=== PATIENT | male | born 1975 | race Caucasian/White ===

== ENCOUNTER 2019-02-11 06:09 | Inpatient (IN) | payer OTHER ==
--- NOTE | 2019-02-10 07:25 | HP ---
HISTORY OF PRESENT ILLNESS: This is a 43-year-old man, who reports to the office for evaluation of low back and leg pain. The patient states that approximately 2 years ago, he was lifting something and the next morning, he could not get up and had to take some time off work. Recently, he states that his low back pain is mostly on the left side into his buttocks, where he feels like there is a hot poker stabbing him. Below his right knee, he has some numbness feeling to his foot. The patient states that he has gone to Physical Therapy for one visit and got some home exercises, which he has been doing regularly. He has gotten injections with a little bit of benefit. He has also been taking muscle relaxers, gabapentin, and pain relieving patches with some benefit as well. REVIEW OF SYSTEMS: A 10-point review of systems has been completed and is negative other than stated in the above HPI. PAST MEDICAL HISTORY: Chronic pain and gout, arthritis, series of accidents or injuries. PAST SURGICAL HISTORY: Wrist surgery in 2014. FAMILY HISTORY: Father is alive, mother is alive. SOCIAL HISTORY: The patient is a smoker and is sexually active. MEDICATIONS: 1. . 2. Gabapentin. 3. Meloxicam. 4. Butrans. ALLERGIES: NO KNOWN DRUG ALLERGIES. PHYSICAL EXAMINATION: CONSTITUTIONAL: Well-appearing, well-nourished, alert. NEUROLOGIC: Mental Status: Oriented to time, place, and person. Normal attention span and concentration. Speech: Spontaneous, fluent. Comprehension intact. Content appropriate. Normal fund of knowledge. CRANIAL NERVES: Pupils are equal, round, and reactive to light. Extraocular movements are intact. Hearing is intact. MOTOR: Muscle strength normal in lower extremities. 5/5 bilateral strength in IP, KE, KF, PF, EHL, 4+/5 in DF bilaterally. No radiculopathy. Negative single leg raise bilaterally. Rotation of bilateral hips normal. Nontender to palpation. RESPIRATIONS: Normal work of breathing on room air. GAIT AND STATION: Normal. Leans forward. Motor exam is normal. IMAGING: Flexion-extension, stable. Ulcer grade 2, slip at L5-S1. MRI stenosis and slip at L5-S1. ASSESSMENT AND PLAN: Lumbar radiculopathy, severe stenosis from L5-S1 slip. No amount of therapeutic injections will correct this structural issue and nonsurgical therapies have failed. We have offered a laminectomy and fusion. Received informed consent. We discussed the indications, risks, benefits, alternatives, expected results from surgery. Risks discussed included, but were not limited to, bleeding, infection, CSF leak, nerve damage, weakness, incontinence, cauda equina injury, arachnoiditis, paralysis, ventilator dependence, wheelchair dependence, loss of vision, hardware misplacement, cardiopulmonary complications of anesthesia or . Long-term complications discussed included, but were not limited to degradation of surrounding disks and the need for further surgery. The patient states he understands the risks and is willing to proceed. Job ID: [id number]
[2019-02-10 13:17] VITALS: BMI 19.6
[2019-02-11] MEDS ORDERED: Fentanyl 100 MCG/2 ML VIAL ONE ×4 (06:15→13:04)
[2019-02-11] MEDS ORDERED: Ketamine 50 MG/ML (10ML VIAL) ONE (06:16)
[2019-02-11] MEDS ORDERED: Bupivacaine HCl 0.5%/Epinephrine 1:200,000/PF 30 ml Vial ONE (06:20)
[2019-02-11] MEDS ORDERED: Sodium Chloride 0.9% 20 ML ONE (06:20)
[2019-02-11] MEDS ORDERED: Thrombin 5000 UNITS/5 ML VIAL ONE (06:20)
[2019-02-11 06:38] LABS: #Basophils 0.1 thou/uL (0.0-0.2); #Eosinphils 0.2 thou/uL (0.0-0.7); #Lymphocytes 2.5 thou/uL (1.20-3.40); #Monocytes 0.5 thou/uL (0.11-0.59); #Neutrophils 2.4 thou/uL (1.40-6.50); %Basophils 1.9 % (0.0-1.0); %Eosinophils 2.7 % (0.0-10.0); %Lymphocytes 44.1 % (21.0-51.0); %Monocytes 9.1 % (0.0-10.0); %Neutrophils 42.3 % (42.0-75.0); Hemoglobin 12.9 g/dL (14.0-18.0); Mean Corpuscular HGB CONC 32.1 g/dL (32.0-36.0); Mean Corpuscular Hemoglobin 29.5 pg (27.0-31.0); Mean Corpuscular Volume 91.7 fL (78.0-98.0); Mean Platelet Volume 7.6 fL (7.4-10.4); Platelet Count 252 thou/uL (130-400); RBC Distribution Width 11.7 % (11.5-14.5); Red Blood Cell (RBC) Count 4.37 mill/uL (4.70-6.10); White Blood Cell (WBC) Count 5.7 thou/uL (4.8-10.8)
[2019-02-11 06:48] LABS: INR-International Normal Ratio 0.9; Prothrombin Time 12.6 SEC (12.0-14.7)
[2019-02-11] MEDS ORDERED: Midazolam HCl 2 mg/2 ml Vial ONE (06:50)
[2019-02-11] MEDS ORDERED: Scopolamine 1.5 mg/72 hour Patch ONE (06:50)
[2019-02-11] MEDS ORDERED: HYDROmorphone 2 MG/ML VIAL ONE ×2 (07:30→12:40)
[2019-02-11] MEDS ORDERED: Ondansetron PF 4 MG/2 ML Vial ONE ×3 (11:21→14:29)
[2019-02-11] MEDS ORDERED: SUGAMMADEX SODIUM 200 MG/2 ML VIAL ONE (11:23)
[2019-02-11] MEDS ORDERED: Mag-Al 1200 mg/1200 mg/30 ML UDCUP PO PRN (11:48)
[2019-02-11] MEDS ORDERED: Morphine 4 MG/ML VIAL SLOW IVP PRN (11:48)
[2019-02-11] MEDS ORDERED: Promethazine HCl 25 MG/ML VIAL IM PRN ×2 (11:48→12:01)
[2019-02-11] MEDS ORDERED: Morphine 2 MG/ML SYRINGE SLOW IVP PRN (11:48)
[2019-02-11] MEDS ORDERED: Promethazine 25 MG TAB PO PRN (11:48)
[2019-02-11] MEDS ORDERED: Acetaminophen/Codeine 30-300mg Tablet PO PRN (11:48)
[2019-02-11] MEDS ORDERED: traMADol HCl 50 MG TAB PO PRN ×2 (11:48)
[2019-02-11] MEDS ORDERED: Bisacodyl 10 MG SUPP PR PRN (11:48)
[2019-02-11] MEDS ORDERED: Acetaminophen 325 MG TAB PO PRN (11:48)
[2019-02-11] MEDS ORDERED: diphenhydrAMINE 25 MG CAP PO PRN (11:48)
[2019-02-11] MEDS ORDERED: Milk Of Magnesia 30 ML UDCUP PO PRN (11:48)
[2019-02-11] MEDS ORDERED: diphenhydrAMINE 50 MG/ML VIAL IVP PRN (11:48)
[2019-02-11] MEDS ORDERED: Tamsulosin HCl 0.4 MG CAP PO PRN (11:48)
[2019-02-11] MEDS ORDERED: Ondansetron PF 4 MG/2 ML Vial IVP PRN (11:48)
[2019-02-11] MEDS ORDERED: Ketorolac Tromethamine 30 MG/ML VIAL IVP PRN (12:01)
[2019-02-11] MEDS ORDERED: Promethazine HCl 25 MG/ML VIAL SLOW IVP PRN (12:01)
[2019-02-11] MEDS ORDERED: HYDROmorphone 2 MG/ML VIAL SLOW IVP PRN (12:01)
[2019-02-11] MEDS ORDERED: Ondansetron HCl/PF 4 MG/2 ML Vial IVP PRN (12:01)
[2019-02-11] MEDS ORDERED: Meperidine HCl/PF 25 MG/ML VIAL SLOW IVP PRN (12:01)
--- NOTE | 2019-02-11 12:04 | OP ---
DATE OF PROCEDURE: 02/11/2019 BARREL RAISER: Dione Sotelo PA-C PREOPERATIVE INDICATION: Prevent neurological deterioration. PREOPERATIVE DIAGNOSES: Grade 2 spondylolisthesis, L5-S1 was severe canal stenosis, neurogenic claudication, and axial back pain. POSTOPERATIVE DIAGNOSES: Grade 2 spondylolisthesis, L5-S1 was severe canal stenosis, neurogenic claudication, and axial back pain. OPERATIVE PROCEDURES: Decompressive laminectomy, medial facetectomy, foraminotomy L5-S1, transforaminal lumbar interbody arthrodesis L5-S1, placement of intervertebral biomechanical device L5-S1, pedicle screw and elizabeth instrumentation L5-S1, posterior lateral arthrodesis L5-S1, local morselized autograft, and morselized allograft. PREOPERATIVE MEDICATIONS: Ancef 2 g IV. DRAIN NUMBER: Zero. DRAIN TYPE: None. DESCRIPTION OF PROCEDURE: The patient was brought to the operating room. General endotracheal anesthesia was induced. The patient was positioned on the Jaxson frame with the appropriate padding for the chest and hips. A lateral fluoro radiograph was used to plan our incision. The lumbar skin was sterilely prepped and draped. We opened with a 10 blade knife. We controlled bleeding with bipolar and monopolar cautery. We used monopolar cautery to dissect through subcutaneous tissue to the thoracodorsal fascia. We incised the fascia in the midline and reflected the paraspinal muscles off the spinous process and lamina of L4, L5, and S1. A lateral fluoro radiograph confirmed the levels upon which we were operating. We then dissected out the L5 transverse processes bilaterally as well as the sacral ala bilaterally. Self-retaining retractors were placed there. I used an Adson rongeur, we removed the spinous process and laminae of L5 and the superior portion of the sacrum. Kerrison rongeurs were used to finish off the laminectomy. We widened our laminectomy defect until we were in-line with the medial border of the pedicles at L5 and S1 bilaterally. With the decompression secured, we turned our attention to arthrodesis. We completed a facetectomy on the left side at L5-S1. Through the bony defect, we accessed the ventral epidural space and the L5-S1 disk space. We incised the disk space and removed disk contents using curettes and rongeurs. We prepared the endplates for grafting with curettes. We used a bone rasp to measure the height of the interspace to 10 mm. A 10 mm blade mm PEEK intervertebral graft was brought into the field. The laminectomy bone was carefully morselized on the back table after all soft tissue was removed. The morselized bone was added to demineralized bone matrix to form a fusion substrate and the substrate was loaded into the PEEK graft. The PEEK was advanced into the interspace under radiographic guidance to the appropriate depth. We turned our attention to pedicle screw instrumentation. Using bony anatomic landmarks, palpation of the medial portion of the pedicles, and a lateral fluoro radiograph as our guide, we chose the entry points for the L5 and S1 pedicle screws. We used a bone awl to advance our trajectories through the pedicles into the vertebral bodies. We tapped the trajectories with a threaded tap and then probed them. We found them completely encased in bone. A 6.5 mm diameter screws were placed in the pedicles at L5 and S1 bilaterally and a 360-degree image set was generated with our isocentric C-arm confirming positioning of the pedicle screws. We then irrigated with bacitracin irrigation. We placed rods into the pedicle screw caps into the pedicle screw heads and then, we tightened caps down over the rods. We compressed across the interspace before final tightening to keep the interbody device in place. Using a torque/counter-torque mechanism, we ensured adequate tightness. We decorticated the sacral ala and the transverse process of L5 bilaterally and over the decorticated bone, we left demineralized bone matrix and morselized autograft as our posterior lateral fusion substrate. We irrigated the center of the wound once again. We treated the wound with vancomycin powder and we closed in anatomical layers. We applied a sterile dressing. This was a clean case, no contamination. Job ID: [id number]
[2019-02-11] MEDS ORDERED: Ketorolac Tromethamine 30 MG/ML VIAL ONE (12:56)
[2019-02-11] MEDS ORDERED: Dexamethasone 20 MG/5 ML VIAL ONE (14:29)
[2019-02-11] MEDS ORDERED: Rocuronium Bromide 10 MG/ML (10ML VIAL) ONE (14:29)
[2019-02-11] MEDS ORDERED: Lidocaine 1% PF 5 ML VIAL ONE (14:29)
[2019-02-11] MEDS ORDERED: PROPOFOL 200 MG/20 ML VIAL ONE (14:29)
[2019-02-11] MEDS: Sodium Chloride 0.9% 1,000 ML IV SCH (15:06)
[2019-02-11] MEDS: Gabapentin 300 MG CAP PO PRN (15:12)
[2019-02-11] MEDS: CEFAZOLIN 2 GM in Premix Bag 1 BAG IVPB SCH ×2 (15:17→23:31)
[2019-02-12] MEDS: Acetaminophen/Codeine 30-300mg Tablet PO PRN ×5 (01:17→20:17)
[2019-02-12] MEDS: Sodium Chloride 0.9% 1,000 ML IV SCH ×2 (02:20→14:35)
[2019-02-12] MEDS: Gabapentin 300 MG CAP PO PRN ×2 (04:39→13:32)
--- NOTE | 2019-02-12 09:31 | PRG ---
DATE OF SERVICE: 02/12/2019 Mr. Corrales is one day out from decompression, fusion of the lumbosacral interspace. There is significant and severe lumbar stenosis, especially in the lateral recesses at L5-S1 under the facet joints. We decompressed the exiting L5 nerve roots and the traversing exiting S1 nerve roots and stabilized his unstable listhesis. Overnight, he has had some back spasm but he has been rolling from [id number]. His brace was brought to him this morning. He is anxious to get out of bed and walk. On exam, his neurological function is well preserved. The plan is to mobilize today. With aggressive mobilization, he will become more confident with getting in and out of bed and walking, going to the bathroom and eating, then he can be discharged after lunch. If he needs some more work in the afternoon hours or into the evening, then he can be discharged tomorrow. Job ID: [id number] MTDD
[2019-02-12] MEDS: tiZANidine HCl 4 MG TAB PO PRN ×2 (11:38→23:44)
[2019-02-13] MEDS: Sodium Chloride 0.9% 1,000 ML IV SCH (03:16)
[2019-02-13] MEDS: Gabapentin 300 MG CAP PO PRN (04:28)
[2019-02-13 07:51] VITALS: BP 106/61; TEMP 98.1
[2019-02-13] MEDS ORDERED: Buprenorphine [Butrans] 1 PATCH TOP SCH (09:00)
[2019-02-13] MEDS: tiZANidine HCl 4 MG TAB PO PRN (09:42)
[2019-02-13] MEDS: Acetaminophen/Codeine 30-300mg Tablet PO PRN (09:42)
--- NOTE | 2019-02-13 11:47 | PRG ---
DATE OF SERVICE: 02/13/2019 I saw Corbin Corrales in his hospital room this morning. He is 2 days out from decompression and fusion of the lumbosacral interspace for grade 2 spondylolisthesis. His nerve pain has completely gone. He is sore when he walks, but that soreness is right at the operative site. He is very pleased with the operation. Mr. Corrales looks independent for his activities of daily living and can be discharged today. Followup arrangements have been made. We talked about wound care and activity restrictions already. Job ID: [id number]
== END 2019-02-13 10:39 | disposition home or self-care (01) | DRG 460 ==
LOC: SURG A 06:09 → EDSTATUS 15:07
PROVIDERS: ADMIT Neurological Surgery; ATTEND Neurological Surgery
PROC: 01NB0ZZ Release Lumbar Nerve, Open Approach (ICD-10-PCS; principal; 2019-02-11)
PROC: 0SG30AJ Fusion of Lumbosacral Joint with Interbody Fusion Device, Posterior Approach, Anterior Column, Open Approach (ICD-10-PCS; 2019-02-11)
DX: M48.07 Spinal stenosis, lumbosacral region (principal); M43.17 Spondylolisthesis, lumbosacral region; G89.29 Other chronic pain; M10.9 Gout, unspecified; M19.90 Unspecified osteoarthritis, unspecified site; F17.210 Nicotine dependence, cigarettes, uncomplicated; M54.17 Radiculopathy, lumbosacral region
CPT/HCPCS: 36415; 76000; 85025; 85610; 85730; C1713; C1768; J0131; J0670; J0690; J1100; J1170; J1885; J2001; J2250; J2270; J2405; J2704; J3010; J3370; J3490